=== PATIENT | male | born 1980 | race Hispanic/Latino ===

== ENCOUNTER 2017-07-26 05:28 | Inpatient (IN) | payer SELFPAY ==
[2017-07-26] MEDS ORDERED: Sodium Chloride 0.9% 1,000 ML IV SCH (06:00)
--- NOTE | 2017-07-26 06:20 | ED PDOC ---
HPI: Abdomen Time Seen by Provider: 07/26/17 05:44 Chief Complaint (Nursing): Abdominal Pain Chief Complaint (Provider): Abdominal Pain History Per: Patient History/Exam Limitations: no limitations Onset/Duration Of Symptoms: Days (x2) Current Symptoms Are (Timing): Still Present Additional Complaint(s): Viral Delong is a 36 year old male that presents to the ED with a two day history of abdominal pain. Patient reports that when his symptoms first started, it felt like nausea and localized abdominal pain, but that it worsened yesterday, as his pain moved to the RLQ, and he became concerned for appendicitis. He reports reports normal bowel movements, but decreased PO intake and nausea. Denies urinary complaints, vomiting, chest pain, shortness of breath, or back pain. Past Medical History Reviewed: Historical Data, Nursing Documentation, Vital Signs Vital Signs: Last Vital Signs Temp 100.6 F H 07/26/17 05:38 Pulse 106 H 07/26/17 05:38 Resp 18 07/26/17 05:38 BP 105/75 07/26/17 05:38 Pulse Ox 100 07/26/17 06:22 - Family History Family History: States: Unknown Family Hx - Allergies Allergies/Adverse Reactions: Allergies Allergy/AdvReac Type Severity Reaction Status Date / Time No Known Allergies Allergy Verified 07/26/17 05:50 Review of Systems ROS Statement: Except As Marked, All Systems Reviewed And Found Negative Constitutional: Positive for: Other (decreased PO intake) Cardiovascular: Negative for: Chest Pain Respiratory: Negative for: Shortness of Breath Gastrointestinal: Positive for: Nausea, Abdominal Pain (RLQ). Negative for: Vomiting, Diarrhea, Constipation Genitourinary Male: Negative for: Dysuria, Frequency, Hematuria Musculoskeletal: Negative for: Back Pain Physical Exam - Reviewed Nursing Documentation Reviewed: Yes Vital Signs Reviewed: Yes - Physical Exam Appears: Positive for: Non-toxic, No Acute Distress Head Exam: Positive for: ATRAUMATIC, NORMOCEPHALIC Skin: Positive for: Normal Color, Warm Eye Exam: Positive for: Normal appearance, EOMI, PERRL Cardiovascular/Chest: Positive for: Regular Rate, Rhythm. Negative for: Murmur Respiratory: Positive for: Normal Breath Sounds. Negative for: Wheezing Gastrointestinal/Abdominal: Positive for: Tenderness (TTP RLQ). Negative for: Normal Exam Back: Positive for: Normal Inspection. Negative for: L CVA Tenderness, R CVA Tenderness Extremity: Positive for: Normal ROM. Negative for: Deformity, Swelling Neurologic/Psych: Positive for: Alert, Oriented. Negative for: Motor/Sensory Deficits - ECG O2 Sat by Pulse Oximetry: 100 (RA) Pulse Ox Interpretation: Normal Medical Decision Making Medical Decision Making: Impression: RLQ Pain, concern for appendicitis Plan: * CT Abd/Pelvis with PO and IV Contrast * CMP * CBC * Lipase * Urinalysis * Toradol 30 mg IV * Zofran 4 mg IV * NaCl 1000 mLs at 1000 mLs/hr * Reevaluation 7:00AM Patient pending labs and CT. Will sign out to Dr. Kaba to reevaluate after results Scribe Attestation: Documented by Christianne Hdez, acting as a scribe for Bhakti Malik MD. Provider Scribe Attestation: All medical record entries made by the Scribe were at my direction and personally dictated by me. I have reviewed the chart and agree that the record accurately reflects my personal performance of the history, physical exam, medical decision making, and the department course for this patient. I have also personally directed, reviewed, and agree with the discharge instructions and disposition. Disposition - Clinical Impression Clinical Impression: Abdominal pain - Disposition Disposition Time: 07:00 Condition: FAIR Forms: [employer] (Georgian)
--- NOTE | 2017-07-26 07:24 | ED PDOC ---
- Laboratory Results Result Diagrams: 07/26/17 07:55 07/26/17 07:55 - ECG O2 Sat by Pulse Oximetry: 100 (RA) Pulse Ox Interpretation: Normal Medical Decision Making Medical Decision Making: Time: 7:00 --Patient signed out to me by Dr. Bhakti Malik pending labs and CT. PMH: None PSH: None Last ate @ 4 PM yesterday, last drank water @ 4 AM today. Time: 10:40 CT ABDOMEN & PELVIS W IV CONTRAST FINDINGS: LOWER THORAX: Bilateral posterior dependent pleural hypo ventilatory atelectatic changes. LIVER: Unremarkable. No gross lesion or ductal dilatation. GALLBLADDER AND BILE DUCTS: Unremarkable. PANCREAS: Unremarkable. No gross lesion or ductal dilatation. SPLEEN: Unremarkable. ADRENALS: Unremarkable. No mass. KIDNEYS AND URETERS: Unremarkable. No hydronephrosis. No solid mass. VASCULATURE: Unremarkable. No aortic aneurysm. BOWEL: . Pericecal inflammatory changes associated with the acute/ subacute appendicitis suggested no bowel obstruction APPENDIX: The appendix is distended with hyperdense/enhancing circumferential wall surrounding periappendiceal/blending pericecal inflammatory changes inflammatory changes are phlegmonous. No walled-off abscess. No associated obstruction. No free air. PERITONEUM: The acute appendicitis changes are contiguous with the right costo lateral peritoneal mid and compatible with mild inflammatory changes of it here. Trace left paracentral tad pelvic free fluid noted. No free air. LYMPH NODES: Unremarkable. No enlarged lymph nodes. BLADDER: Unremarkable. REPRODUCTIVE: Unremarkable. BONES: No acute fracture. OTHER FINDINGS: None. IMPRESSION: . Acute appendicitis with pam appendiceal/ pericecal phlegmonous inflammatory changes. No abscess. No free air. No associated obstruction. Scribe Attestation: Documented by Bayron Stevens, acting as a scribe for Dr. Noemí Kaba MD. Provider Scribe Attestation: All medical record entries made by the Scribe were at my direction and personally dictated by me. I have reviewed the chart and agree that the record accurately reflects my personal performance of the history, physical exam, medical decision making, and the department course for this patient. I have also personally directed, reviewed, and agree with the discharge instructions and disposition. Disposition - Clinical Impression Clinical Impression: Acute appendicitis - POA Present On Arrival: None - Disposition Disposition: Admitted as In-Patient Disposition Time: 10:48 Condition: STABLE
[2017-07-26 08:04] LABS: BASO % 0.2 % (0.0-2.0); EOS % 0.1 % (0.0-4.0); HEMOGLOBIN 14.4 g/dL (12.0-18.0); LYMPH # 2.1 K/uL (1.0-4.3); LYMPH % 10.6 % (20.0-40.0); MEAN CELL VOLUME 87.1 fl (80.0-94.0); MEAN CORPUSCULAR HEMOGLOBIN 29.1 pg (27.0-31.0); MEAN CORPUSCULAR HGB CONC 33.4 g/dL (33.0-37.0); MEAN PLATELET VOLUME 8.4 fl (7.2-11.7); MONO % 10.3 % (0.0-10.0); NEUT # 15.4 K/uL (1.8-7.0); NEUT % 78.8 % (50.0-75.0); RBC 4.94 Mil/uL (4.40-5.90); WHITE BLOOD COUNT 19.5 K/uL (4.8-10.8)
[2017-07-26 08:15] LABS: SQUAMOUS EPITHIAL < 1 /hpf (0-5); URINE BILIRUBIN NEGATIVE (NEGATIVE); URINE BLOOD SMALL (NEGATIVE); URINE CLARITY CLOUDY (Clear); URINE COLOR YELLOW (YELLOW); URINE GLUCOSE (UA) NEG (Normal); URINE LEUKOCYTE ESTERASE SMALL Leu/uL (Negative); URINE NITRATE NEGATIVE (NEGATIVE); URINE PROTEIN 30 mg/dL (NEGATIVE); URINE UROBILINOGEN 0.2-1.0 mg/dL (0.2-1.0)
[2017-07-26 08:27] LABS: CALCIUM 9.2 mg/dL (8.4-10.2); GFR AFRICAN-AMERICAN > 60; GFR NON-AFRICAN AMERICAN > 60; LIPASE 65 U/L (23-300)
[2017-07-26 08:31] LABS: ALB/GLOB RATIO 1.3 (1.0-2.1); ALBUMIN 4.4 g/dL (3.5-5.0); ALT/SGPT 26 U/L (21-72); AST/SGOT 27 U/L (17-59); BLOOD UREA NITROGEN 14 mg/dl (9-20)
[2017-07-26] MEDS ORDERED: Iohexol 300 100 ML IJ ONE (08:51)
[2017-07-26] MEDS ORDERED: Sodium Chloride 0.9% 50 ML IV ONE (08:51)
[2017-07-26] MEDS ORDERED: Piperacillin/Tazobact 4.5 GM in Sodium Chloride 0.9% 100 ML IVPB STA (10:19)
--- NOTE | 2017-07-26 10:41 | CT ---
PROCEDURE: CT Abdomen and Pelvis with contrast HISTORY: RLQ pain COMPARISON: None. TECHNIQUE: Contrast dose: 95 mL Omnipaque 300 Radiation dose: Total exam DLP = 875 mGy-cm. This CT exam was performed using one or more of the following dose reduction techniques: Automated exposure control, adjustment of the mA and/or kV according to patient size, and/or use of iterative reconstruction technique. FINDINGS: LOWER THORAX: Bilateral posterior dependent pleural hypo ventilatory atelectatic changes. LIVER: Unremarkable. No gross lesion or ductal dilatation. GALLBLADDER AND BILE DUCTS: Unremarkable. PANCREAS: Unremarkable. No gross lesion or ductal dilatation. SPLEEN: Unremarkable. ADRENALS: Unremarkable. No mass. KIDNEYS AND URETERS: Unremarkable. No hydronephrosis. No solid mass. VASCULATURE: Unremarkable. No aortic aneurysm. BOWEL: . Pericecal inflammatory changes associated with the acute/ subacute appendicitis suggested no bowel obstruction APPENDIX: The appendix is distended with hyperdense/enhancing circumferential wall surrounding periappendiceal/blending pericecal inflammatory changes inflammatory changes are phlegmonous. No walled-off abscess. No associated obstruction. No free air. PERITONEUM: The acute appendicitis changes are contiguous with the right costo lateral peritoneal mid and compatible with mild inflammatory changes of it here. Trace left paracentral tad pelvic free fluid noted. No free air. LYMPH NODES: Unremarkable. No enlarged lymph nodes. BLADDER: Unremarkable. REPRODUCTIVE: Unremarkable. BONES: No acute fracture. OTHER FINDINGS: None. IMPRESSION: . Acute appendicitis with pam appendiceal/ pericecal phlegmonous inflammatory changes. No abscess. No free air. No associated obstruction. Comments: Dr. Kaba is aware.
--- NOTE | 2017-07-26 11:24 | CP.PCM.CON ---
<Maral Perez - Last Filed: 07/26/17 11:57> History of Present Illness - History of Present Illness History of Present Illness: General Surgery Dr. Mott 36 y/o M w/ no PHMx presents to the ED c/o abd pain. Pt states pain began 2days ago as vague, generalized abd pain. Last night, however, pt reports pain became significantly worse and localized to the RLQ. Pt denies having had similar pain in the past. Nothing seems to make pain worse and pain was unrelieved prior to medication given in ED. Pt admits to subjective fevers overnight w/ no chills. Pt admits to nausea, worsened by PO intake but denies nausea, D/C. PMHx: denies Meds: none NKDA PSHx: denies SHx: social tobacco and EtOH use. denies drug use FHx: non-contributory Review of Systems - Review of Systems All systems: reviewed and no additional remarkable complaints except (see HPI) Past Patient History - Past Social History Smoking Status: Never Smoked - PSYCHIATRIC Hx Substance Use: No - SURGICAL HISTORY Hx Surgeries: No - ANESTHESIA Hx Anesthesia: No Meds Allergies/Adverse Reactions: Allergies Allergy/AdvReac Type Severity Reaction Status Date / Time No Known Allergies Allergy Verified 07/26/17 05:50 - Medications Medications: Current Medications Hydromorphone HCl (Dilaudid) 0.5 mg IVP Q3 PRN PRN Reason: Pain, moderate (4-7) Stop: 07/28/17 11:16 Sodium Chloride (Sodium Chloride 0.9%) 1,000 mls @ 1,000 mls/hr IV .Q1H [facility] Stop: 07/27/17 05:54 Last Admin: 07/26/17 06:39 Dose: 1,000 mls/hr Piperacillin Sod/Tazobactam (Sod 3.375 gm/ Sodium Chloride) 100 mls @ 100 mls/ hr IVPB Q6 GALE PRN Reason: Protocol Ondansetron HCl (Zofran Inj) 4 mg IVP Q4 PRN PRN Reason: Nausea/Vomiting Physical Exam - Constitutional Appears: Non-toxic, No Acute Distress - Head Exam Head Exam: NORMAL INSPECTION - Eye Exam Eye Exam: Normal appearance - ENT Exam ENT Exam: Mucous Membranes Moist - Respiratory Exam Respiratory Exam: NORMAL BREATHING PATTERN. absent: Accessory Muscle Use, Respiratory Distress - GI/Abdominal Exam GI & Abdominal Exam: Guarding (voluntary), Rebound, Soft, Tenderness (TTP RLQ). absent: Distended - Expanded GI/Abdominal Exam Expanded Expanded GI & Abdominal Exam: Rovsing's Sign, McBurney's Point Tenderness. absent: Obturator Sign, Psoas Sign - Extremities Exam Extremities exam: Positive for: normal inspection - Neurological Exam Neurological exam: Alert, Oriented x3 - Psychiatric Exam Psychiatric exam: Normal Affect, Normal Mood - Skin Skin Exam: Diaphoretic, Intact, Normal Color, Warm Results - Vital Signs Recent Vital Signs: Last Vital Signs Temp 99.3 F 07/26/17 11:06 Pulse 94 H 07/26/17 11:06 Resp 18 07/26/17 11:06 BP 108/69 07/26/17 11:06 Pulse Ox 99 07/26/17 11:06 - Labs Result Diagrams: 07/26/17 07:55 07/26/17 07:55 Labs: Laboratory Results - last 24 hr 07/26/17 07/26/17 07/26/17 07:55 07:55 07:55 WBC 19.5 H RBC 4.94 Hgb 14.4 Hct 43.0 MCV 87.1 MCH 29.1 MCHC 33.4 RDW 13.0 Plt Count 258 MPV 8.4 Neut % (Auto) 78.8 H Lymph % (Auto) 10.6 L [place] % (Auto) 10.3 H Eos % (Auto) 0.1 Baso % (Auto) 0.2 Neut # (Auto) 15.4 H Lymph # (Auto) 2.1 [place] # (Auto) 2.0 H Eos # (Auto) 0.0 Baso # (Auto) 0.0 Sodium 140 Potassium 4.5 Chloride 101 Carbon Dioxide 27 Anion Gap 17 BUN 14 Creatinine 1.0 Est GFR ( Amer) > 60 Est GFR (Non-Af Amer) > 60 Random Glucose 98 Calcium 9.2 Total Bilirubin 1.5 H AST 27 ALT 26 Alkaline Phosphatase 63 Total Protein 7.9 Albumin 4.4 Globulin 3.5 Albumin/Globulin Ratio 1.3 Lipase 65 Urine Color Yellow Urine Clarity Cloudy Urine pH 6.0 Ur Specific [place] 1.029 Urine Protein 30 Urine Glucose (UA) Neg Urine Ketones Negative Urine Blood Small Urine Nitrate Negative Urine Bilirubin Negative Urine Urobilinogen 0.2-1.0 Ur Leukocyte Esterase Small Urine RBC (Auto) 6 H Urine Microscopic WBC 21 H Ur Squamous Epith Cells < 1 - Imaging and Cardiology CT scan - abdomen Status: Image reviewed by me, Report reviewed by me Assessment & Plan - Assessment and Plan (Free Text) Assessment: 36 y/o M w/ phlegmonous appendicitis - NPO, IVF - Zosyn - pain management - anti-emetic - OR scheduled for 2pm; consent to be obtained Pt discussed w/ Dr. Pantera Perez DO PGY2 <David Mott - Last Filed: 07/27/17 11:19> Meds - Medications Medications: Current Medications Acetaminophen (Tylenol 325mg Tab) 650 mg PO Q4 PRN PRN Reason: Fever >100.4 F Last Admin: 07/26/17 18:47 Dose: 650 mg Hydromorphone HCl (Dilaudid) 0.5 mg IVP Q3 PRN PRN Reason: Pain, severe (8-10) Stop: 07/28/17 11:16 Piperacillin Sod/Tazobactam (Sod 3.375 gm/ Sodium Chloride) 100 mls @ 100 mls/ hr IVPB Q6 GALE PRN Reason: Protocol Last Admin: 07/27/17 09:34 Dose: 100 mls/hr Sodium Chloride (Sodium Chloride 0.9%) 1,000 mls @ 150 mls/hr IV .Q6H40M GALE Stop: 07/27/17 18:33 Last Admin: 07/27/17 09:35 Dose: 150 mls/hr Metronidazole (Flagyl 500mg/100ml Ns) 100 mls @ 100 mls/hr IVPB Q8@0400,1200, 2000 GALE PRN Reason: Protocol Last Admin: 07/27/17 04:55 Dose: 100 mls/hr Ibuprofen (Motrin Tab) 600 mg PO Q6 PRN PRN Reason: Fever >100.4 F Last Admin: 07/26/17 20:22 Dose: 600 mg Ondansetron HCl (Zofran Inj) 4 mg IVP Q4 PRN PRN Reason: Nausea/Vomiting Oxycodone/Acetaminophen (Percocet 5/325 Mg Tab) 1 tab PO Q4 PRN PRN Reason: Pain, moderate (4-7) Stop: 07/29/17 15:16 Results - Vital Signs Recent Vital Signs: Last Vital Signs Temp 99 F 07/27/17 08:03 Pulse 91 H 07/27/17 08:03 Resp 20 07/27/17 08:03 BP 113/70 07/27/17 08:03 Pulse Ox 97 07/27/17 08:03 - Labs Result Diagrams: 07/27/17 06:00 07/27/17 06:00 Labs: Laboratory Results - last 24 hr 07/26/17 07/26/17 07/27/17 13:57 13:57 06:00 WBC 18.5 H RBC 4.35 L Hgb 12.5 Hct 37.9 MCV 87.3 MCH 28.8 MCHC 33.0 RDW 13.0 Plt Count 207 MPV 7.9 Neut % (Auto) 84.7 H Lymph % (Auto) 5.7 L [place] % (Auto) 9.5 Eos % (Auto) 0.0 Baso % (Auto) 0.1 Neut # (Auto) 15.7 H Lymph # (Auto) 1.1 [place] # (Auto) 1.8 H Eos # (Auto) 0.0 Baso # (Auto) 0.0 PT 13.9 H INR 1.3 H APTT 30.6 Sodium Potassium Chloride Carbon Dioxide Anion Gap BUN Creatinine Est GFR ( Amer) Est GFR (Non-Af Amer) Random Glucose Calcium 07/27/17 06:00 WBC RBC Hgb Hct MCV MCH MCHC RDW Plt Count MPV Neut % (Auto) Lymph % (Auto) [place] % (Auto) Eos % (Auto) Baso % (Auto) Neut # (Auto) Lymph # (Auto) [place] # (Auto) Eos # (Auto) Baso # (Auto) PT INR APTT Sodium 141 Potassium 4.0 Chloride 106 Carbon Dioxide 25 Anion Gap 14 BUN 15 Creatinine 1.0 Est GFR ( Amer) > 60 Est GFR (Non-Af Amer) > 60 Random Glucose 125 H Calcium 8.5 Assessment & Plan - Assessment and Plan (Free Text) Assessment: doing well, ok to d/c home Plan: when wbc better can d/c, cont abx
[2017-07-26] MEDS ORDERED: Lactated Ringer's 1,000 ML IV SCH ×2 (12:00→15:15)
--- NOTE | 2017-07-26 12:13 | CP.PCM.HP ---
History of Present Illness - History of Present Illness History of Present Illness: 36 yo male with no significant PMH came in complaining of abdominal pain since 2 days ago. He claimed pain was generalized initially then became localized to the RLQ today. Denied diarrhea or vomiting but admitted feeling nauseous today trying to take a bite in spite of lost of appetite the past 2 days. Also denied fever, chills, chest pain or SOB. Present on Admission - Present on Admission Any Indicators Present on Admission: No History of DVT/PE: No History of Uncontrolled Diabetes: No Urinary Catheter: No Decubitus Ulcer Present: No Review of Systems - Review of Systems All systems: reviewed and no additional remarkable complaints except (aside from those mentioned above, 12 point system review were negative by me) Past Patient History - Tetanus Immunizations Tetanus Immunization: Unknown - Past Social History Smoking Status: Light Smoker < 10 Cigarettes Daily Alcohol: Social Drugs: Denies - CARDIAC Hx Cardiac Disorders: No - PULMONARY Hx Respiratory Disorders: No - NEUROLOGICAL Hx Neurological Disorder: No - HEENT Hx HEENT Problems: No - RENAL Hx Chronic Kidney Disease: No - ENDOCRINE/METABOLIC Hx Endocrine Disorders: No - HEMATOLOGICAL/ONCOLOGICAL Hx Blood Disorders: No - INTEGUMENTARY Hx Dermatological Problems: No - MUSCULOSKELETAL/RHEUMATOLOGICAL Hx Musculoskeletal Disorders: No - GASTROINTESTINAL Hx Gastrointestinal Disorders: No - GENITOURINARY/GYNECOLOGICAL Hx Genitourinary Disorders: No - PSYCHIATRIC Hx Psychophysiologic Disorder: No Hx Substance Use: No - SURGICAL HISTORY Hx Surgeries: No - ANESTHESIA Hx Anesthesia: No Meds Allergies/Adverse Reactions: Allergies Allergy/AdvReac Type Severity Reaction Status Date / Time No Known Allergies Allergy Verified 07/26/17 05:50 Physical Exam - Constitutional Appears: No Acute Distress - Head Exam Head Exam: ATRAUMATIC - Eye Exam Eye Exam: absent: Scleral icterus - ENT Exam ENT Exam: Mucous Membranes Moist - Neck Exam Neck exam: Negative for: Meningismus - Respiratory Exam Respiratory Exam: absent: Rhonchi, Wheezes, Respiratory Distress - Cardiovascular Exam Cardiovascular Exam: REGULAR RHYTHM, +S1, +S2 - GI/Abdominal Exam GI & Abdominal Exam: Soft, Tenderness (mild to moderate tenderness on RLQ). absent: Guarding, Rebound - Rectal Exam Rectal Exam: Deferred - Extremities Exam Extremities exam: Negative for: calf tenderness, pedal edema - Back Exam Back exam: absent: tenderness - Neurological Exam Neurological exam: Alert, Oriented x3 - Psychiatric Exam Psychiatric exam: Normal Affect - Skin Skin Exam: Dry, Intact Results - Vital Signs Recent Vital Signs: Last Vital Signs Temp 99.3 F 07/26/17 11:06 Pulse 94 H 07/26/17 11:06 Resp 18 07/26/17 11:06 BP 108/69 07/26/17 11:06 Pulse Ox 99 07/26/17 11:06 - Labs Result Diagrams: 07/26/17 07:55 07/26/17 07:55 Labs: Laboratory Results - last 24 hr 07/26/17 07/26/17 07/26/17 07:55 07:55 07:55 WBC 19.5 H RBC 4.94 Hgb 14.4 Hct 43.0 MCV 87.1 MCH 29.1 MCHC 33.4 RDW 13.0 Plt Count 258 MPV 8.4 Neut % (Auto) 78.8 H Lymph % (Auto) 10.6 L [place] % (Auto) 10.3 H Eos % (Auto) 0.1 Baso % (Auto) 0.2 Neut # (Auto) 15.4 H Lymph # (Auto) 2.1 [place] # (Auto) 2.0 H Eos # (Auto) 0.0 Baso # (Auto) 0.0 Sodium 140 Potassium 4.5 Chloride 101 Carbon Dioxide 27 Anion Gap 17 BUN 14 Creatinine 1.0 Est GFR ( Amer) > 60 Est GFR (Non-Af Amer) > 60 Random Glucose 98 Calcium 9.2 Total Bilirubin 1.5 H AST 27 ALT 26 Alkaline Phosphatase 63 Total Protein 7.9 Albumin 4.4 Globulin 3.5 Albumin/Globulin Ratio 1.3 Lipase 65 Urine Color Yellow Urine Clarity Cloudy Urine pH 6.0 Ur Specific [place] 1.029 Urine Protein 30 Urine Glucose (UA) Neg Urine Ketones Negative Urine Blood Small Urine Nitrate Negative Urine Bilirubin Negative Urine Urobilinogen 0.2-1.0 Ur Leukocyte Esterase Small Urine RBC (Auto) 6 H Urine Microscopic WBC 21 H Ur Squamous Epith Cells < 1 Assessment & Plan (1) Acute appendicitis Status: Acute Comment: CT scan of abdomen/pelvis: acute appendicitis with pam-appendiciea inflammatory changes. WBC: 19.5. surgical consult with Dr Mott called by Dr Kaba. continue Zosyn 3.375gm IV q 6hrs. patient cleared medically as low surgical risk
[2017-07-26] MEDS ORDERED: Bupivacaine 0.5% Inj(30mL) ONE (13:16)
[2017-07-26] MEDS ORDERED: Propofol 10 mg/ml Inj (20 ML) ONE (13:36)
[2017-07-26] MEDS ORDERED: Lidocaine 4% (Laryng-O-Jet) Kit MM ONE (13:36)
[2017-07-26] MEDS ORDERED: Succinylcholine 200 mg/10 ml Inj IV ONE (13:36)
[2017-07-26] MEDS ORDERED: Rocuronium 10 mg/ml (5 ml) ONE (13:36)
[2017-07-26] MEDS ORDERED: Phenylephrine 10 mg/ml Inj ONE (13:40)
[2017-07-26] MEDS ORDERED: Midazolam 2 MG/2 ML VIAL ONE (14:00)
[2017-07-26] MEDS ORDERED: Neostigmine Methylsulfate 2 MG/2 ML ML IV ONE (14:14)
[2017-07-26] MEDS ORDERED: Lactated Ringer's 1,000 ML IV ONE (14:25)
[2017-07-26] MEDS ORDERED: Dexamethasone 4 mg/1 ml ONE (14:40)
[2017-07-26 14:44] LABS: INR 1.3 (0.9-1.2); PROTHROMBIN TIME 13.9 Seconds (9.8-13.1)
[2017-07-26] MEDS ORDERED: HYDROmorphone 0.5 mg/0.5 ml ISec IVP PRN (15:13)
--- NOTE | 2017-07-26 15:14 | PCM.SURG1 ---
Surgeon's Initial Post Op Note - Surgeon's Notes Surgeon: Dr. Mott Appeals Writer: Dr. Perez PGY2 Type of Anesthesia: General Endo Pre-Operative Diagnosis: acute appendicitis Operative Findings: see dictation Post-Operative Diagnosis: same Operation Performed: laparoscopic appnedectomy Specimen/Specimens Removed: appendix Estimated Blood Loss: EBL {In ML}: 5 Drains Used: No Drains Post-Op Condition: Good Date of Surgery/Procedure: 07/26/17 Time of Surgery/Procedure: 14:25
[2017-07-26] MEDS: Piperacillin/Tazobact 3.375 GM in Sodium Chloride 0.9% 100 ML IVPB SCH ×2 (16:29→22:31)
[2017-07-26] MEDS: Sodium Chloride 0.9% 1,000 ML IV SCH ×2 (18:47→20:33)
[2017-07-26] MEDS ORDERED: metroNIDAZOLE 500mg/100ml NS 100 ML IVPB SCH (19:15)
[2017-07-27] MEDS: Piperacillin/Tazobact 3.375 GM in Sodium Chloride 0.9% 100 ML IVPB SCH ×4 (03:29→22:14)
[2017-07-27] MEDS: metroNIDAZOLE 500mg/100ml NS 100 ML IVPB SCH ×3 (04:55→20:49)
[2017-07-27] MEDS: Sodium Chloride 0.9% 1,000 ML IV SCH ×3 (05:01→16:06)
[2017-07-27 06:34] LABS: BASO % 0.1 % (0.0-2.0); HEMOGLOBIN 12.5 g/dL (12.0-18.0); LYMPH # 1.1 K/uL (1.0-4.3); LYMPH % 5.7 % (20.0-40.0); MEAN CELL VOLUME 87.3 fl (80.0-94.0); MEAN CORPUSCULAR HEMOGLOBIN 28.8 pg (27.0-31.0); MEAN PLATELET VOLUME 7.9 fl (7.2-11.7); MONO # 1.8 K/uL (0.0-0.8); MONO % 9.5 % (0.0-10.0); NEUT # 15.7 K/uL (1.8-7.0); NEUT % 84.7 % (50.0-75.0); PLATELET COUNT 207 K/uL (130-400); RBC 4.35 Mil/uL (4.40-5.90); WHITE BLOOD COUNT 18.5 K/uL (4.8-10.8)
--- NOTE | 2017-07-27 07:31 | CP.PCM.PN ---
Subjective - Date & Time of Evaluation Date of Evaluation: 07/27/17 Time of Evaluation: 06:45 - Subjective Subjective: General Surgery Dr. Mott Pt S&E @bedside. Pt underwent laparoscopic appendectomy yesterday. Pt tolerated the procedure well w/ no complications. Pt febrile overnight w/ Tmax 102.8F. This morning pt has no complaints. Denies abd pain, N/V, D/C. reports ambulating hallways. tolerating CLD. (+)BM/Flatus Objective - Vital Signs/Intake and Output Vital Signs (last 24 hours): Temp Pulse Resp BP Pulse Ox 98.1 F 93 H 19 94/55 L 96 07/27/17 05:03 07/27/17 05:03 07/27/17 05:03 07/27/17 05:03 07/27/17 05:03 - Medications Medications: Current Medications Acetaminophen (Tylenol 325mg Tab) 650 mg PO Q4 PRN PRN Reason: Fever >100.4 F Last Admin: 07/26/17 18:47 Dose: 650 mg Hydromorphone HCl (Dilaudid) 0.5 mg IVP Q3 PRN PRN Reason: Pain, severe (8-10) Stop: 07/28/17 11:16 Piperacillin Sod/Tazobactam (Sod 3.375 gm/ Sodium Chloride) 100 mls @ 100 mls/ hr IVPB Q6 GALE PRN Reason: Protocol Last Admin: 07/27/17 03:29 Dose: 100 mls/hr Sodium Chloride (Sodium Chloride 0.9%) 1,000 mls @ 150 mls/hr IV .Q6H40M [facility] Stop: 07/27/17 18:33 Last Admin: 07/27/17 05:01 Dose: Not Given Metronidazole (Flagyl 500mg/100ml Ns) 100 mls @ 100 mls/hr IVPB Q8@0400,1200, 2000 GALE PRN Reason: Protocol Last Admin: 07/27/17 04:55 Dose: 100 mls/hr Ibuprofen (Motrin Tab) 600 mg PO Q6 PRN PRN Reason: Fever >100.4 F Last Admin: 07/26/17 20:22 Dose: 600 mg Ondansetron HCl (Zofran Inj) 4 mg IVP Q4 PRN PRN Reason: Nausea/Vomiting Oxycodone/Acetaminophen (Percocet 5/325 Mg Tab) 1 tab PO Q4 PRN PRN Reason: Pain, moderate (4-7) Stop: 07/29/17 15:16 - Labs Labs: 07/27/17 06:00 07/26/17 07:55 PT 13.9 Seconds (9.8-13.1) H 07/26/17 13:57 INR 1.3 (0.9-1.2) H 07/26/17 13:57 APTT 30.6 Seconds (25.6-37.1) 07/26/17 13:57 - Constitutional Appears: Non-toxic, No Acute Distress - Head Exam Head Exam: NORMAL INSPECTION - Eye Exam Eye Exam: Normal appearance - ENT Exam ENT Exam: Mucous Membranes Moist - Respiratory Exam Respiratory Exam: Accessory Muscle Use. absent: Respiratory Distress, NORMAL BREATHING PATTERN - GI/Abdominal Exam GI & Abdominal Exam: Soft. absent: Distended, Guarding, Tenderness, Rebound Additional comments: incisions c/d/i - Extremities Exam Extremities Exam: Normal Inspection - Neurological Exam Neurological Exam: Alert, Awake, Oriented x3 - Psychiatric Exam Psychiatric exam: Normal Affect, Normal Mood - Skin Skin Exam: Dry, Normal Color, Warm Assessment and Plan - Assessment and Plan (Free Text) Assessment: 36 y/o M POD#1 s/p laparoscopic appendectomy - ADAT - febrile overnight --> monitor vitals - continued leukocytosis --> trend - cont IV Abx - cont pain management, anti-emetic - encourage OOB to chair/Amb/IS use Pt discussed w/ Dr. Pantera Perez DO PGY2
[2017-07-27 08:09] VITALS: RESP 20
[2017-07-27 08:20] LABS: BLOOD UREA NITROGEN 15 mg/dl (9-20); CALCIUM 8.5 mg/dL (8.4-10.2); GFR AFRICAN-AMERICAN > 60; GFR NON-AFRICAN AMERICAN > 60
--- NOTE | 2017-07-27 10:38 | CP.PCM.PN ---
Subjective - Date & Time of Evaluation Date of Evaluation: 07/27/17 Time of Evaluation: 10:37 - Subjective Subjective: doing well no complaints no pain no cp sob calf tenderness HD stable NAD Objective - Vital Signs/Intake and Output Vital Signs (last 24 hours): Temp Pulse Resp BP Pulse Ox 99 F 91 H 20 113/70 97 07/27/17 08:03 07/27/17 08:03 07/27/17 08:03 07/27/17 08:03 07/27/17 08:03 - Medications Medications: Current Medications Acetaminophen (Tylenol 325mg Tab) 650 mg PO Q4 PRN PRN Reason: Fever >100.4 F Last Admin: 07/26/17 18:47 Dose: 650 mg Hydromorphone HCl (Dilaudid) 0.5 mg IVP Q3 PRN PRN Reason: Pain, severe (8-10) Stop: 07/28/17 11:16 Piperacillin Sod/Tazobactam (Sod 3.375 gm/ Sodium Chloride) 100 mls @ 100 mls/ hr IVPB Q6 GALE PRN Reason: Protocol Last Admin: 07/27/17 09:34 Dose: 100 mls/hr Sodium Chloride (Sodium Chloride 0.9%) 1,000 mls @ 150 mls/hr IV .Q6H40M GALE Stop: 07/27/17 18:33 Last Admin: 07/27/17 09:35 Dose: 150 mls/hr Metronidazole (Flagyl 500mg/100ml Ns) 100 mls @ 100 mls/hr IVPB Q8@0400,1200, 2000 GALE PRN Reason: Protocol Last Admin: 07/27/17 04:55 Dose: 100 mls/hr Ibuprofen (Motrin Tab) 600 mg PO Q6 PRN PRN Reason: Fever >100.4 F Last Admin: 07/26/17 20:22 Dose: 600 mg Ondansetron HCl (Zofran Inj) 4 mg IVP Q4 PRN PRN Reason: Nausea/Vomiting Oxycodone/Acetaminophen (Percocet 5/325 Mg Tab) 1 tab PO Q4 PRN PRN Reason: Pain, moderate (4-7) Stop: 07/29/17 15:16 - Labs Labs: 07/27/17 06:00 07/27/17 06:00 PT 13.9 Seconds (9.8-13.1) H 07/26/17 13:57 INR 1.3 (0.9-1.2) H 07/26/17 13:57 APTT 30.6 Seconds (25.6-37.1) 07/26/17 13:57 - Constitutional Appears: Non-toxic, No Acute Distress - Head Exam Head Exam: ATRAUMATIC, NORMOCEPHALIC - Eye Exam Eye Exam: EOMI, Normal appearance Pupil Exam: NORMAL ACCOMODATION - ENT Exam ENT Exam: Mucous Membranes Moist, Normal Oropharynx - Neck Exam Neck Exam: Full ROM, Normal Inspection - Respiratory Exam Respiratory Exam: Clear to Ausculation Bilateral, NORMAL BREATHING PATTERN - Cardiovascular Exam Cardiovascular Exam: RRR, +S1, +S2 - GI/Abdominal Exam GI & Abdominal Exam: Soft, Normal Bowel Sounds - Extremities Exam Extremities Exam: Full ROM, Normal Capillary Refill. absent: Calf Tenderness - Back Exam Back Exam: absent: CVA tenderness (L), CVA tenderness (R) - Neurological Exam Neurological Exam: Alert, Awake, Oriented x3 - Psychiatric Exam Psychiatric exam: Normal Affect, Normal Mood - Skin Skin Exam: Dry, Warm Assessment and Plan - Assessment and Plan (Free Text) Plan: (1) Acute appendicitis s/p lap appendectomy POD 1, febrile overnight, trend WBC CT scan of abdomen/pelvis: acute appendicitis with pam-appendiciea inflammatory changes. WBC: 19.5, slowly trending down Surgical consult with Dr Pantera Shearer and Clint
[2017-07-27 11:22] LABS: LYMPHOCYTE 9 % (20-50); MONOCYTE 9 % (0-10); NEUTROPHIL 82 % (42-75); PLATELET ESTIMATE NORMAL (NORMAL); TOTAL CELLS COUNTED 100
--- NOTE | 2017-07-27 12:35 | OP ---
PROCEDURE DATE: 07/26/2017 PREOPERATIVE DIAGNOSIS: Acute appendicitis. POSTOPERATIVE DIAGNOSIS: Acute appendicitis. OPERATION PERFORMED: Laparoscopic appendectomy. SURGEON: David Mott MD [employer]: . TYPE OF ANESTHESIA: General anesthesia. OPERATIVE FINDINGS: Acute gangrenous appendicitis. ESTIMATED BLOOD LOSS: Minimal. DESCRIPTION OF PROCEDURE: The patient was taken to the operating room and placed supine on the operating room table. After induction of general anesthesia, a Fournier catheter was placed to decompress the bladder and the abdomen was prepped and draped in the standard surgical fashion. A Veress needle was inserted into the abdomen and the abdomen was insufflated. Once the abdomen was insufflated, a 5-mm trocar was placed through the umbilicus and a diagnostic laparoscopy was performed. The diagnostic laparoscopy revealed inflammation in the right lower quadrant. The patient was then placed into the Trendelenburg and left side down position, and a 5 mm suprapubic trocar as well as a 12 mm left-sided trocar were placed under direct vision. The appendix was then found at the base of the cecum, grasped, and pulled upwards. A window was made in the mesoappendix using the [place] dissector. Once the window was made in the mesoappendix, the Endo-JALEN was fired across the appendix and the base of the appendix and cecum were severed. A second firing of the Endo-JALEN using a vascular load was used to fire across the mesoappendix. Once the mesoappendix was severed, the appendix was placed into an EndoCatch bag. David Mott MD
[2017-07-27] MEDS ORDERED: Simethicone 80 mg Chewtab PO PRN (17:59)
[2017-07-27] MEDS: Oxycodone/Acetaminophen 5/325 mg Tab PO PRN (21:22)
[2017-07-27 23:40] VITALS: O2SAT 97
[2017-07-28] MEDS: metroNIDAZOLE 500mg/100ml NS 100 ML IVPB SCH (04:05)
[2017-07-28] MEDS: Piperacillin/Tazobact 3.375 GM in Sodium Chloride 0.9% 100 ML IVPB SCH ×2 (04:13→09:44)
[2017-07-28] MEDS: Oxycodone/Acetaminophen 5/325 mg Tab PO PRN ×2 (05:42→11:51)
[2017-07-28 06:31] LABS: HEMOGLOBIN 12.8 g/dL (12.0-18.0); LYMPH % 19.5 % (20.0-40.0); MEAN CELL VOLUME 88.4 fl (80.0-94.0); MEAN CORPUSCULAR HEMOGLOBIN 28.8 pg (27.0-31.0); MEAN CORPUSCULAR HGB CONC 32.6 g/dL (33.0-37.0); MEAN PLATELET VOLUME 7.8 fl (7.2-11.7); NEUT % 71.6 % (50.0-75.0); RBC 4.44 Mil/uL (4.40-5.90); RED CELL DISTRIBUTION WIDTH 13.2 % (11.5-14.5); WHITE BLOOD COUNT 12.9 K/uL (4.8-10.8)
[2017-07-28 06:32] LABS: BASO % 0.3 % (0.0-2.0); EOS # 0.1 K/uL (0.0-0.7); EOS % 0.6 % (0.0-4.0); LYMPH # 2.5 K/uL (1.0-4.3); NEUT # 9.3 K/uL (1.8-7.0)
[2017-07-28 08:24] VITALS: BP 124/74; PULSE 78; TEMP 98.4
--- NOTE | 2017-07-28 10:56 | CP.PCM.DIS ---
Provider - Provider Date of Admission: 07/26/17 10:48 Attending physician: Simba Boateng MD Time Spent in preparation of Discharge (in minutes): 30 Diagnosis - Discharge Diagnosis (1) Acute appendicitis Status: Acute Hospital Course - Lab Results Lab Results: Most Recent Lab Values WBC 12.9 K/uL (4.8-10.8) H 07/28/17 05:55 RBC 4.44 Mil/uL (4.40-5.90) 07/28/17 05:55 Hgb 12.8 g/dL (12.0-18.0) 07/28/17 05:55 Hct 39.2 % (35.0-51.0) 07/28/17 05:55 MCV 88.4 fl (80.0-94.0) 07/28/17 05:55 MCH 28.8 pg (27.0-31.0) 07/28/17 05:55 MCHC 32.6 g/dL (33.0-37.0) L 07/28/17 05:55 RDW 13.2 % (11.5-14.5) 07/28/17 05:55 Plt Count 223 K/uL (130-400) 07/28/17 05:55 MPV 7.8 fl (7.2-11.7) 07/28/17 05:55 Neut % (Auto) 71.6 % (50.0-75.0) 07/28/17 05:55 Lymph % (Auto) 19.5 % (20.0-40.0) L 07/28/17 05:55 [place] % (Auto) 8.0 % (0.0-10.0) 07/28/17 05:55 Eos % (Auto) 0.6 % (0.0-4.0) 07/28/17 05:55 Baso % (Auto) 0.3 % (0.0-2.0) 07/28/17 05:55 Neut # (Auto) 9.3 K/uL (1.8-7.0) H 07/28/17 05:55 Lymph # (Auto) 2.5 K/uL (1.0-4.3) 07/28/17 05:55 [place] # (Auto) 1.0 K/uL (0.0-0.8) H 07/28/17 05:55 Eos # (Auto) 0.1 K/uL (0.0-0.7) 07/28/17 05:55 Baso # (Auto) 0.0 K/uL (0.0-0.2) 07/28/17 05:55 Neutrophils % (Manual) 82 % (42-75) H 07/27/17 06:00 Lymphocytes % (Manual) 9 % (20-50) L 07/27/17 06:00 Monocytes % (Manual) 9 % (0-10) 07/27/17 06:00 Platelet Estimate Normal (NORMAL) 07/27/17 06:00 RBC Morphology Normal (NORMAL) 07/27/17 06:00 PT 13.9 Seconds (9.8-13.1) H 07/26/17 13:57 INR 1.3 (0.9-1.2) H 07/26/17 13:57 APTT 30.6 Seconds (25.6-37.1) 07/26/17 13:57 Sodium 141 mmol/l (132-148) 07/27/17 06:00 Potassium 4.0 MMOL/L (3.6-5.0) 07/27/17 06:00 Chloride 106 mmol/L (98-107) 07/27/17 06:00 Carbon Dioxide 25 mmol/L (22-30) 07/27/17 06:00 Anion Gap 14 (10-20) 07/27/17 06:00 BUN 15 mg/dl (9-20) 07/27/17 06:00 Creatinine 1.0 mg/dl (0.8-1.5) 07/27/17 06:00 Est GFR ( Amer) > 60 07/27/17 06:00 Est GFR (Non-Af Amer) > 60 07/27/17 06:00 Random Glucose 125 mg/dL (75-110) H 07/27/17 06:00 Calcium 8.5 mg/dL (8.4-10.2) 07/27/17 06:00 Total Bilirubin 1.5 mg/dl (0.2-1.3) H 07/26/17 07:55 AST 27 U/L (17-59) 07/26/17 07:55 ALT 26 U/L (21-72) 07/26/17 07:55 Alkaline Phosphatase 63 U/L (38-126) 07/26/17 07:55 Total Protein 7.9 G/DL (6.3-8.2) 07/26/17 07:55 Albumin 4.4 g/dL (3.5-5.0) 07/26/17 07:55 Globulin 3.5 gm/dL (2.2-3.9) 07/26/17 07:55 Albumin/Globulin Ratio 1.3 (1.0-2.1) 07/26/17 07:55 Lipase 65 U/L (23-300) 07/26/17 07:55 Urine Color Yellow (YELLOW) 07/26/17 07:55 Urine Clarity Cloudy (Clear) 07/26/17 07:55 Urine pH 6.0 (5.0-8.0) 07/26/17 07:55 Ur Specific [place] 1.029 (1.003-1.030) 07/26/17 07:55 Urine Protein 30 mg/dL (NEGATIVE) 07/26/17 07:55 Urine Glucose (UA) Neg mg/dL (Normal) 07/26/17 07:55 Urine Ketones Negative mg/dL (NEGATIVE) 07/26/17 07:55 Urine Blood Small (NEGATIVE) 07/26/17 07:55 Urine Nitrate Negative (NEGATIVE) 07/26/17 07:55 Urine Bilirubin Negative (NEGATIVE) 07/26/17 07:55 Urine Urobilinogen 0.2-1.0 mg/dL (0.2-1.0) 07/26/17 07:55 Ur Leukocyte Esterase Small [place] Javier/uL (Negative) 07/26/17 07:55 Urine RBC (Auto) 6 /hpf (0-3) H 07/26/17 07:55 Urine Microscopic WBC 21 /hpf (0-5) H 07/26/17 07:55 Ur Squamous Epith Cells < 1 /hpf (0-5) 07/26/17 07:55 - Hospital Course Hospital Course: 36 yo male with no significant PMH came in complaining of abdominal pain since 2 days ago. He claimed pain was generalized initially then became localized to the RLQ today. Denied diarrhea or vomiting but admitted feeling nauseous today trying to take a bite in spite of lost of appetite the past 2 days. Also denied fever, chills, chest pain or SOB. (1) Acute appendicitis s/p lap appendectomy POD 2, afebrile overnight WBC improving discussed with Surgery, stable to be discharged home with ABX AUGMENTIN 7 DAYS. follow up in [address] Mott. Follow up PCP in one week as well. CT scan of abdomen/pelvis: acute appendicitis with pam-appendiciea inflammatory changes. Surgical consult with Dr Mott Discharge Exam - Head Exam Head Exam: ATRAUMATIC, NORMOCEPHALIC - Eye Exam Eye Exam: EOMI, Normal appearance - ENT Exam ENT Exam: Mucous Membranes Moist, Normal Oropharynx - Respiratory Exam Respiratory Exam: Clear to PA & Lateral, NORMAL BREATHING PATTERN - Cardiovascular Exam Cardiovascular Exam: REGULAR RHYTHM, +S1, +S2 - GI/Abdominal Exam GI & Abdominal Exam: Normal Bowel Sounds, Soft, Tenderness (OP SITE). absent: Guarding, Mass, Rebound - Back Exam Back exam: absent: CVA tenderness (L), paraspinal tenderness - Neurological Exam Neurological exam: Alert, Oriented x3 - Psychiatric Exam Psychiatric exam: Normal Affect, Normal Mood - Skin Skin Exam: Dry, Normal Color Discharge Plan - Discharge Medications Prescriptions: Amoxicillin/Clavulanate [Augmentin 875 MG-125 MG] 1 tab PO Q12 #14 tab - Follow Up Plan Condition: STABLE Disposition: HOME/ ROUTINE Instructions: Laparoscopic Appendectomy (DC) Additional Instructions: follow up with surgeon 7-10 days follow up with your primary MD 7-10 days Referrals: David Mott MD [Staff Provider] -
== END 2017-07-28 13:07 | disposition home or self-care (01) | DRG 343 ==
LOC: H.ER 05:28 → H.ERHOLD 10:48 → H.MEDSURG1 17:00
PROC: 0DTJ4ZZ Resection of Appendix, Percutaneous Endoscopic Approach (ICD-10-PCS; principal; 2017-07-26 14:00)
DX: K35.89 Other acute appendicitis (principal); D72.828 Other elevated white blood cell count; F17.210 Nicotine dependence, cigarettes, uncomplicated